=== PATIENT | female | born 1990 | race Caucasian/White ===

== ENCOUNTER → 2018-01-11 | Outpatient (CLI) | payer BC | LOC: YCFC.O 12:29 | DX: Z00.00 Encounter for general adult medical examination without abnormal findings (principal) ==

== ENCOUNTER → 2018-05-06 | Outpatient (CLI) | payer BC | LOC: LAB.NP 14:14 | PROVIDERS: ATTEND Nurse Practitioner Family | DX: R19.7 Diarrhea, unspecified (principal) ==

== ENCOUNTER → 2018-12-12 | Outpatient (CLI) | payer BC | LOC: GMAE 10:34 | PROVIDERS: ATTEND Family Medicine | DX: Z00.00 Encounter for general adult medical examination without abnormal findings (principal) ==